=== PATIENT | female | born 1975 | race Caucasian/White ===

== ENCOUNTER → 2019-01-19 | Outpatient (CLI) | payer MEDICAID ==
--- NOTE | 2019-01-19 13:26 | Diagnostic Imaging Report ---
INDICATION: Routine screening. COMPARISON: No prior mammograms are available for comparison. TECHNIQUE: 2D and 3D bilateral screening mammography was performed with CAD. FINDINGS: Scattered fibroglandular densities are identified bilaterally. No mass or malignant appearing microcalcifications are seen. The axillae are unremarkable. IMPRESSION: No mammographic features suspicious for malignancy are identified. ACR BI-RADS Category 1: Negative. Result letter will be mailed to the patient. Note: At least 10% of breast cancer is not imaged by mammography. Dictated by: Dictated on workstation # [id number]
== END ==
LOC: RAD 10:31
PROVIDERS: ATTEND Family Medicine
DX: Z12.31 Encounter for screening mammogram for malignant neoplasm of breast (principal)
CPT/HCPCS: 77067

== ENCOUNTER → 2019-10-19 | Outpatient (CLI) | payer MEDICAID | LOC: LAB 09:25 | PROVIDERS: ATTEND Specialist | DX: B20 Human immunodeficiency virus [HIV] disease (principal) | CPT/HCPCS: 36415; 86360 ==

== ENCOUNTER → 2019-11-08 | Outpatient (CLI) | payer MEDICAID | LOC: LAB 13:22 | PROVIDERS: ATTEND Specialist | DX: B20 Human immunodeficiency virus [HIV] disease (principal) | CPT/HCPCS: 36415; 87536 ==

== ENCOUNTER 2020-04-26 13:19 | Emergency (ER) | payer MEDICAID ==
[~2020-04-26] VITALS: Ht 165 cm; Wt 58.9 kg
[2020-04-26] MEDS ORDERED: RX-ALBUTEROL INHALER (VENTOLIN HFA) 18 GM IH ONE (13:36)
[2020-04-26] MEDS ORDERED: cefTRIAXone FOR IV USE 1,000 MG in WATER (STERILE) FOR INJECTION 10 ML IV ONE (14:00)
[2020-04-26] MEDS ORDERED: RT-ALBUTEROL INHALER HFA (VENTOLIN HFA) 18 GM IH SCH (14:00)
[2020-04-26] MEDS ORDERED: methylPREDNISolone 125 MG (Solu-MEDROL) VIAL IVP ONE (14:00)
--- NOTE | 2020-04-26 14:03 | ED Cough/URI ---
General Chief Complaint: Respiratory Problems Stated Complaint: SOB; CHEST TIGHTNESS; DRY COUGH Nursing Triage Note: PT PRESENTS TO ED WITH COMPLAINTS OF CHEST TIGHTNESS, SOA, AND COUGH X 3 DAYS Sepsis Screen: No Definite Risk Source: patient Exam Limitations: no limitations History of Present Illness Date Seen by Provider: Apr 26, 2020 Time Seen by Provider: 14:00 Initial Comments To ER with reports of three-day history of intermittent chest tightness when she lays down, shortness of breath and a nonproductive cough. She does smoke about three quarters of a pack of cigarettes per day. She was told that she had the beginnings of COPD 4 years ago she states. She denies fevers chills or headache. She does have HIV and she states that her CD4 counts are typically very low that she is compliant with her antiretroviral medications. She follows with a physician out of [place]. The oral combo drug for HIv and gabapentin are her only 2 medications. Timing/Duration: constant Severity/Quality: moderate Associated Symptoms: chest pain/soreness, cough, shortness of breath Allergies and Home Medications Allergies Coded Allergies: codeine (Verified Allergy, Unknown, 04/26/20) Uncoded Allergies: pcn (Allergy, Unknown, 04/26/20) Patient Home Medication List Home Medication List Reviewed: Yes Review of Systems Review of Systems Constitutional: see HPI; No chills, No fever EENTM: see HPI, other (does report difficulty hearing) Respiratory: no symptoms reported Cardiovascular: no symptoms reported Genitourinary: no symptoms reported Musculoskeletal: no symptoms reported Skin: no symptoms reported Psychiatric/Neurological: No Symptoms Reported Hematologic/Lymphatic: No Symptoms Reported Past Vwzdmsa-Djsrrd-Vgptrp Hx Patient Social History Alcohol Use: Denies Use Recreational Drug Use: Yes Drug of Choice: thc Smoking Status: Current Everyday Smoker Type Used: Cigarettes Recent Foreign Travel: No Contact w/Someone Who Travel: No Recent Infectious Disease Expo: No Recent Hopitalizations: No Physical Abuse: No Sexual Abuse: No Mistreated: No Fear: No Seasonal Allergies Seasonal Allergies: No Past Medical History Surgeries: Yes (l eye) Tubal Ligation Respiratory: No Cardiac: No Neurological: No Genitourinary: No Gastrointestinal: No Musculoskeletal: No Endocrine: No HEENT: No Cancer: No Psychosocial: No Integumentary: No Blood Disorders: Yes (HIV) Physical Exam Vital Signs - First Documented 04/26/20 13:25 Temp 36.0 Pulse 101 Resp 18 B/P (MAP) 148/109 (122) Pulse Ox 95 Capillary Refill : Less Than 3 Seconds Height: '" Weight: lbs. oz. kg; 21.00 BMI Method: General Appearance: WD/WN, no apparent distress, thin, other (oriented very pleasant) Eyes: Bilateral Eye Normal Inspection, Bilateral Eye PERRL, Bilateral Eye EOMI HEENT: PERRL/EOMI, normal ENT inspection, other (bilateral cerumen impaction. I irrigated the ears with a 10 cc syringe attached to a 20-gauge IV catheter tip with a mixture of warm water and peroxide and removed the cerumen impaction bilaterally with resultant improvement in her hearing. She was very appreciative of this.) Neck: non-tender, full range of motion Respiratory: no respiratory distress, no accessory muscle use, wheezing (audible wheezing inspiratory and expiratory. After 6 puffs of albuterol inhaler using a spacer about 10 minutes later the wheezing was absent and she felt symptomatic improvement.) Cardiovascular: regular rate, rhythm, no murmur Gastrointestinal: normal bowel sounds, soft Neurologic/Psychiatric: alert, normal mood/affect, oriented x 3 Skin: normal color, warm/dry Progress/Results/Core Measures Suspected Sepsis Recent Fever Within 48 Hours: Yes Infection Criteria Present: None New/Unexplained Altered Menta: No Sepsis Screen: No Definite Risk SIRS Temperature: Pulse: 101 Respiratory Rate: 18 Laboratory Tests 04/26/20 13:42: White Blood Count 6.2 Blood Pressure 148 /109 Mean: 122 Laboratory Tests 04/26/20 13:42: Platelet Count 204 Results/Orders Lab Results Laboratory Tests Test 04/26/20 13:38 04/26/20 13:42 Range/Units Coronavirus 2019 (KAREN) Negative Negative White Blood Count 6.2 4.3-11.0 10^3/uL Red Blood Count 4.77 3.80-5.11 10^6/uL Hemoglobin 14.2 11.5-16.0 g/dL Hematocrit 43 35-52 % Mean Corpuscular Volume 90 80-99 fL Mean Corpuscular Hemoglobin 30 25-34 pg Mean Corpuscular Hemoglobin Concent 33 32-36 g/dL Red Cell Distribution Width 13.8 10.0-14.5 % Platelet Count 204 130-400 10^3/uL Mean Platelet Volume 10.3 9.0-12.2 fL Immature Granulocyte % (Auto) 0 % Neutrophils (%) (Auto) 57 42-75 % Lymphocytes (%) (Auto) 26 12-44 % Monocytes (%) (Auto) 11 0-12 % Eosinophils (%) (Auto) 6 0-10 % Basophils (%) (Auto) 1 0-10 % Neutrophils # (Auto) 3.5 1.8-7.8 10^3/uL Lymphocytes # (Auto) 1.6 1.0-4.0 10^3/uL Monocytes # (Auto) 0.7 0.0-1.0 10^3/uL Eosinophils # (Auto) 0.4 H 0.0-0.3 10^3/uL Basophils # (Auto) 0.1 0.0-0.1 10^3/uL Immature Granulocyte # (Auto) 0.0 0.0-0.1 10^3/uL Troponin I < 0.028 <0.028 NG/ML C-Reactive Protein High Sensitivity 3.22 H 0.00-0.50 MG/DL B-Type Natriuretic Peptide 12.9 <100.0 PG/ML My Orders Orders - MARCE KAN APRN Cbc With Automated Diff (04/26/20 13:57) Hs C Reactive Protein (04/26/20 13:57) Ed Iv/Invasive Line Start (04/26/20 13:57) Chest 1 View, Ap/Pa Only (04/26/20 13:57) BNP (04/26/20 13:57) Ekg Tracing (04/26/20 13:57) Troponin I (04/26/20 13:57) Covid 19 Inhouse Test (04/26/20 13:57) Methylprednisolone Sod Succ (Solu-Medrol (04/26/20 14:00) Ceftriaxone For Iv Use (Rocephin For I (04/26/20 14:00) Albuterol Inhaler (Ventolin Hfa) (04/26/20 14:00) Medications Given in ED Current Medications Medications Dose Ordered Sig/Zoey Route Start Time Stop Time Status Last Admin Dose Admin Ceftriaxone Sodium 1000 mg/ Sterile Water 10 ml @ 200 mls/hr ONCE ONCE IV 04/26/20 14:00 04/26/20 14:02 DC 04/26/20 14:35 200 MLS/HR Methylprednisolone Sodium Succinate 125 mg ONCE ONCE IVP 04/26/20 14:00 04/26/20 14:01 DC 04/26/20 14:34 125 MG Vital Signs/I&O 04/26/20 13:25 Temp 36.0 Pulse 101 Resp 18 B/P (MAP) 148/109 (122) Pulse Ox 95 Capillary Refill : Less Than 3 Seconds Blood Pressure Mean: 122 Departure Communication (Admissions) NAME: DELBERT CALVILLO [facility] REC#: [id number] PT STATUS: REG ER : 1975 PHYSICIAN: MARCE KAN APRN ADMIT DATE: 04/26/20/ER Draft Date of Exam:04/26/20 CHEST 1 VIEW, AP/PA ONLY HISTORY: Cough TECHNIQUE: Frontal view of the chest COMPARISON: 07/26/2008 FINDINGS: Lung volumes are mildly large. No focal consolidation is seen. There is no pleural effusion or pneumothorax. The cardiac silhouette is normal in size. IMPRESSION: 1. Mildly large lung volumes with no acute pulmonary abnormality seen. Dictated on workstation # [id number] Dict: 04/26/20 1446 Trans: 04/26/20 1452 CVB [id number] Interpreted by: WALTER BARNETT MD Electronically signed by: Impression Primary Impression: COPD exacerbation Additional Impression: Cerumen impaction Disposition: HOME, SELF-CARE Condition: Stable Departure-Patient Inst. Decision time for Depature: 15:02 Referrals: JOEL CHRISTENSEN DO (PCP/Family) Primary Care Physician Patient Instructions: Risk Factors for COPD Add. Discharge Instructions: 1. 4 puffs of the inhaler every 4 hours as needed for shortness of breath or wheezing. Steroids and antibiotics as directed. Follow-up with your doctor later this week for recheck. All discharge instructions reviewed with patient and/or family. Voiced understanding. Scripts Cefuroxime Axetil (Cefuroxime) 500 Mg Tablet 500 MG PO BID, #10 TAB Prov: MARCE KAN APRN 04/26/20 Prednisone (Prednisone) 20 Mg Tab 40 MG PO DAILY, #8 TAB 0 Refills Prov: MARCE KAN APRN 04/26/20 MARCE KAN APRN Apr 26, 2020 14:03
[2020-04-26 14:06] LABS: BASOPHILS # (AUTO) 0.1 10^3/uL (0.0-0.1); BASOPHILS % (AUTO) 1 % (0-10); EOSINOPHILS # (AUTO) 0.4 10^3/uL (0.0-0.3); EOSINOPHILS % (AUTO) 6 % (0-10); HEMATOCRIT 43 % (35-52); HEMOGLOBIN 14.2 g/dL (11.5-16.0); LYMPHOCYTES # (AUTO) 1.6 10^3/uL (1.0-4.0); LYMPHOCYTES % (AUTO) 26 % (12-44); MEAN CORPUSCULAR HEMOGLOBIN 30 pg (25-34); MEAN CORPUSCULAR HGB CONC 33 g/dL (32-36); MEAN CORPUSCULAR VOLUME 90 fL (80-99); MEAN PLATELET VOLUME 10.3 fL (9.0-12.2); MONOCYTES # (AUTO) 0.7 10^3/uL (0.0-1.0); MONOCYTES % (AUTO) 11 % (0-12); NEUTROPHILS # (AUTO) 3.5 10^3/uL (1.8-7.8); NEUTROPHILS % (AUTO) 57 % (42-75); PLATELET COUNT 204 10^3/uL (130-400); WHITE BLOOD COUNT 6.2 10^3/uL (4.3-11.0)
--- NOTE | 2020-04-26 14:54 | Diagnostic Imaging Report ---
HISTORY: Cough TECHNIQUE: Frontal view of the chest COMPARISON: 07/26/2008 FINDINGS: Lung volumes are mildly large. No focal consolidation is seen. There is no pleural effusion or pneumothorax. The cardiac silhouette is normal in size. IMPRESSION: 1. Mildly large lung volumes with no acute pulmonary abnormality seen. Dictated by: Dictated on workstation # [id number]
[2020-04-26] MEDS ORDERED: PRD20T PO (15:08)
[2020-04-26] MEDS ORDERED: CEFU500T63 PO (15:08)
[2020-04-26 15:20] VITALS: BP 135/72
== END 2020-04-26 15:20 | disposition home or self-care (01) ==
LOC: EDUNIT# 13:19 → ER 13:21
DX: J44.1 Chronic obstructive pulmonary disease with (acute) exacerbation (principal); H61.23 Impacted cerumen, bilateral; F17.210 Nicotine dependence, cigarettes, uncomplicated; Z20.828 Contact with and (suspected) exposure to other viral communicable diseases; Z88.0 Allergy status to penicillin; Z88.5 Allergy status to narcotic agent
CPT/HCPCS: 36415; 71045; 83880; 84484; 85025; 86141; 87635; 93005

== ENCOUNTER 2020-10-23 14:01 | Day surgery (SDC) | payer MEDICAID ==
[~2020-10-23] VITALS: Ht 165.1 cm; Wt 52.7 kg
[~2020-10-23 14:01] MED LIST: CEFU500T63 PO; PRD20T PO
[2020-10-23] MEDS ORDERED: ASPIRIN 81 MG CHEW (CHILDREN'S ASA) PO ONE (14:45)
[2020-10-23 15:00] LABS: BASOPHILS % (AUTO) 0 % (0-10); EOSINOPHILS % (AUTO) 0 % (0-10); HEMATOCRIT 40 % (35-52); HEMOGLOBIN 13.3 g/dL (11.5-16.0); LYMPHOCYTES # (AUTO) 0.8 X 10^3 (1.0-4.0); LYMPHOCYTES % (AUTO) 5 % (12-44); MEAN CORPUSCULAR HEMOGLOBIN 29 pg (25-34); MEAN CORPUSCULAR HGB CONC 34 g/dL (32-36); MEAN CORPUSCULAR VOLUME 86 fL (80-99); MEAN PLATELET VOLUME 11.6 fL (9.0-12.2); MONOCYTES # (AUTO) 0.5 X 10^3 (0.0-1.0); MONOCYTES % (AUTO) 3 % (0-12); NEUTROPHILS # (AUTO) 15.3 X 10^3 (1.8-7.8); NEUTROPHILS % (AUTO) 91 % (42-75); PLATELET COUNT 182 10^3/uL (130-400); WHITE BLOOD COUNT 16.8 10^3/uL (4.3-11.0)
--- NOTE | 2020-10-23 15:11 | Diagnostic Imaging Report ---
INDICATION: Productive cough and chest pain. EXAMINATION: Portable chest at 2:52 PM. FINDINGS: There is an infiltrate present in the left lower lung. The right lung is clear. There are no effusions. IMPRESSION: Left lower lung infiltrate, consistent with pneumonia. Dictated by: Dictated on workstation # [id number]
[2020-10-23 15:18] LABS: BAND NEUTROPHILS 1 %; BASOPHILS % (MANUAL) 0 %; EOSINOPHILS % (MANUAL) 0 %; LYMPHOCYTES % (MANUAL) 2 %; MONOCYTES % (MANUAL) 1 %; NEUTROPHILS % (MANUAL) 96 %; TOXIC GRANULATION/VACUOLAZATIO 1+
--- NOTE | 2020-10-23 15:32 | ED General ---
General Chief Complaint: General Problems/Pain Stated Complaint: CP,YELLOW MUCUS Nursing Triage Note: PT REPORTS BURNING SENSATION IN CHEST SINCE 829. PT REPORTS COUGHX2 DAYS WITH BLOODY AND YELLOW MUCUS. PATIENT IS CONCERNED DUE TO HER FAMILY HISTORY OF HEART FAILURE. Nursing Sepsis Screen: No Definite Risk Source of Information: Patient Exam Limitations: No Limitations History of Present Illness Date Seen by Provider: Oct 23, 2020 Time Seen by Provider: 14:07 Initial Comments This is a well-appearing 45-year-old female who presents to the ER with complaints of left-sided chest pain that started 2 days ago. States pain initially was in her left shoulder yesterday but it resolved. Earlier today when she woke up she noted she had some pain now in her left chest wall. She has been coughing up thick yellow sputum and is concerned she may have pneumonia. She is HIV positive and has a history of COPD. She denies fevers, chills, nausea, vomiting, diarrhea, abdominal pain. She does not smoke, drink alcohol, does use marijuana occasionally. Allergies and Home Medications Allergies Coded Allergies: codeine (Verified Allergy, Unknown, 04/26/20) Uncoded Allergies: pcn (Allergy, Unknown, 04/26/20) Home Medications Cefuroxime Axetil 500 Mg Tablet, 500 MG PO BID Prescribed by: MARCE KAN on 04/26/20 1508 Prednisone 20 Mg Tab, 40 MG PO DAILY Prescribed by: MARCE KAN on 04/26/20 1508 Patient Home Medication List Home Medication List Reviewed: Yes Review of Systems Review of Systems Constitutional: see HPI EENTM: no symptoms reported Respiratory: see HPI Cardiovascular: see HPI Gastrointestinal: no symptoms reported Genitourinary: no symptoms reported Musculoskeletal: see HPI Skin: no symptoms reported Psychiatric/Neurological: No Symptoms Reported Hematologic/Lymphatic: No Symptoms Reported Immunological/Allergic: no symptoms reported Past Xtlcxyy-Croofh-Kkktfo Hx Patient Social History Alcohol Use: Denies Use Drug of Choice: thc Type Used: Cigarettes Recent Infectious Disease Expo: No Recent Hopitalizations: No Seasonal Allergies Seasonal Allergies: No Past Medical History Surgeries: Yes (l eye) Tubal Ligation Respiratory: No Cardiac: No Neurological: No Genitourinary: No Gastrointestinal: No Musculoskeletal: No Endocrine: No HEENT: No Cancer: No Psychosocial: No Integumentary: No Blood Disorders: Yes (HIV) Physical Exam Vital Signs Vital Signs - First Documented 10/23/20 14:10 Temp 36.2 Pulse 90 Resp 20 B/P (MAP) 142/89 (106) Pulse Ox 98 Capillary Refill : Less Than 3 Seconds Height, Weight, BMI Height: '" Weight: lbs. oz. kg; 21.00 BMI Method: General Appearance: No Apparent Distress, WD/WN Eyes: Bilateral Eye Normal Inspection, Bilateral Eye PERRL, Bilateral Eye EOMI HEENT: PERRL/EOMI, Normal ENT Inspection Neck: Full Range of Motion, Normal Inspection Respiratory: No Accessory Muscle Use, No Respiratory Distress, Rhonci Cardiovascular: Regular Rate, Rhythm, No Edema, Normal Peripheral Pulses Gastrointestinal: Normal Bowel Sounds, Non Tender, Soft Back: Normal Inspection, No CVA Tenderness Extremity: Normal Capillary Refill, Normal Inspection, Normal Range of Motion Neurologic/Psychiatric: Alert, Oriented x3, No Motor/Sensory Deficits, Normal Mood/Affect Skin: Normal Color, Warm/Dry Progress/Results/Core Measures Suspected Sepsis Recent Fever Within 48 Hours: No Infection Criteria Present: None New/Unexplained Altered Menta: No Sepsis Screen: No Definite Risk SIRS Temperature: Pulse: 90 Respiratory Rate: 20 Laboratory Tests 10/23/20 14:14: White Blood Count 16.8H Blood Pressure 142 /89 Mean: 106 Laboratory Tests 10/23/20 14:14: Platelet Count 182 10/23/20 15:14: Creatinine 1.06, INR Comment 1.0, Total Bilirubin 0.4 Results/Orders Lab Results Laboratory Tests Test 10/23/20 14:14 10/23/20 15:14 Range/Units White Blood Count 16.8 H 4.3-11.0 10^3/uL Red Blood Count 4.59 3.80-5.11 10^6/uL Hemoglobin 13.3 11.5-16.0 g/dL Hematocrit 40 35-52 % Mean Corpuscular Volume 86 80-99 fL Mean Corpuscular Hemoglobin 29 25-34 pg Mean Corpuscular Hemoglobin Concent 34 32-36 g/dL Red Cell Distribution Width 13.7 10.0-14.5 % Platelet Count 182 130-400 10^3/uL Mean Platelet Volume 11.6 9.0-12.2 fL Immature Granulocyte % (Auto) 1 % Neutrophils (%) (Auto) 91 H 42-75 % Lymphocytes (%) (Auto) 5 L 12-44 % Monocytes (%) (Auto) 3 0-12 % Eosinophils (%) (Auto) 0 0-10 % Basophils (%) (Auto) 0 0-10 % Neutrophils # (Auto) 15.3 H 1.8-7.8 X 10^3 Lymphocytes # (Auto) 0.8 L 1.0-4.0 X 10^3 Monocytes # (Auto) 0.5 0.0-1.0 X 10^3 Eosinophils # (Auto) 0.0 0.0-0.3 10^3/uL Basophils # (Auto) 0.0 0.0-0.1 10^3/uL Immature Granulocyte # (Auto) 0.1 0.0-0.1 10^3/uL Neutrophils % (Manual) 96 % Lymphocytes % (Manual) 2 % Monocytes % (Manual) 1 % Eosinophils % (Manual) 0 % Basophils % (Manual) 0 % Band Neutrophils 1 % Toxic Granulation 1+ B-Type Natriuretic Peptide 26.6 <100.0 PG/ML Prothrombin Time 13.4 12.2-14.7 SEC INR Comment 1.0 0.8-1.4 Activated Partial Thromboplast Time 32 24-35 SEC Sodium Level 137 135-145 MMOL/L Potassium Level 3.5 L 3.6-5.0 MMOL/L Chloride Level 96 L 98-107 MMOL/L Carbon Dioxide Level 28 21-32 MMOL/L Anion Gap 13 5-14 MMOL/L Blood Urea Nitrogen 23 H 7-18 MG/DL Creatinine 1.06 0.60-1.30 MG/DL Estimat Glomerular Filtration Rate 56 BUN/Creatinine Ratio 22 Glucose Level 107 H 70-105 MG/DL Calcium Level 9.6 8.5-10.1 MG/DL Corrected Calcium 9.6 8.5-10.1 MG/DL Magnesium Level 2.4 1.6-2.4 MG/DL Total Bilirubin 0.4 0.1-1.0 MG/DL Aspartate Amino Transf (AST/SGOT) 18 5-34 U/L Alanine Aminotransferase (ALT/SGPT) 12 0-55 U/L Alkaline Phosphatase 90 40-136 U/L Myoglobin 381.7 H 10.0-92.0 NG/ML Troponin I 0.313 *H <0.028 NG/ML Total Protein 8.7 H 6.4-8.2 GM/DL Albumin 4.0 3.2-4.5 GM/DL My Orders Orders - SANNA MADRID Janay LIGHT RAIL VEHICLE OPERATOR Cbc With Automated Diff (10/23/20 14:41) Magnesium (10/23/20 14:41) Chest 1 View, Ap/Pa Only (10/23/20 14:41) Comprehensive Metabolic Panel (10/23/20 14:41) Myoglobin Serum (10/23/20 14:41) Protime With Inr (10/23/20 14:41) Partial Thromboplastin Time (10/23/20 14:41) O2 (10/23/20 14:41) Monitor-Rhythm Ecg Trace Only (10/23/20 14:41) Lipid Panel (10/24/20 06:00) Ed Iv/Invasive Line Start (10/23/20 14:41) BNP (10/23/20 14:41) Troponin I (10/23/20 14:41) Aspirin Chewable Tablet (Baby Aspirin Ch (10/23/20 14:45) Manual Differential (10/23/20 14:14) Clopidogrel Tablet (Plavix Tablet) (10/23/20 16:15) Medications Given in ED Current Medications Medications Dose Ordered Sig/Zoey Route Start Time Stop Time Status Last Admin Dose Admin Aspirin 324 mg ONCE ONCE PO 10/23/20 14:45 10/23/20 14:46 DC 10/23/20 14:47 324 MG Clopidogrel Bisulfate 300 mg ONCE ONCE PO 10/23/20 16:15 10/23/20 16:16 DC 10/23/20 16:15 300 MG Vital Signs/I&O 10/23/20 10/23/20 14:10 14:20 Temp 36.2 36.2 Pulse 90 90 Resp 20 20 B/P (MAP) 142/89 (106) Pulse Ox 98 98 Capillary Refill : Less Than 3 Seconds Blood Pressure Mean: 106 Progress Note : Progress Note Patient examined in no acute distress. Initiated cardiac work-up upon arrival. Orders placed for 4 baby aspirin. Noted to have slight ST elevation in V1 and V2, with reciprocal ST depression in leads I, II, AVF. Additionally she was noted to have elevated troponin at 0.331. States she has no chest pain since receiving ASA. Called Dr. Jordan with cardiology and updated regarding case, image of EKG provided. Recommended activating Tar Heat Exchanger Cleaner and to review recommendations for cardiac cath with patient. Notified enginehouse brakeman of STEMI. Discussed findings with patient and recommendations for cardiac cath, she is agreeable with this. She is additional ly noted to have elevated white count and left lower lobe pneumonia as well, so Dr. Molina (hospitalist) was consulted for medical management. Patient transferred from ED to laborer mine. ECG Initial ECG Impression Date: Oct 23, 2020 Initial ECG Impression Time: 14:17 Initial ECG Rate: 80 Initial ECG Rhythm: Normal Sinus Initial ECG Intervals Slight ST elevation in V1, V2. Comment Noted to have slight elevation in V1, V2. Diagnostic Imaging Diagonstic Imaging: Xray Plain Films/CT/US/NM/MRI: chest Comments NAME: DELBERT CALVILLO [facility] REC#: [id number] PT STATUS: REG ER : 1975 PHYSICIAN: SANNA MADRID LIGHT RAIL VEHICLE OPERATOR ADMIT DATE: 10/23/20/ER Draft Date of Exam:10/23/20 CHEST 1 VIEW, AP/PA ONLY INDICATION: Productive cough and chest pain. EXAMINATION: Portable chest at 2:52 PM. FINDINGS: There is an infiltrate present in the left lower lung. The right lung is clear. There are no effusions. IMPRESSION: Left lower lung infiltrate, consistent with pneumonia. Dictated on workstation # [id number] Dict: 10/23/20 1510 Trans: 10/23/20 1511 [id number] Interpreted by: TATIANA DEL ANGEL MD Electronically signed by: Reviewed: Reviewed by Me Departure Impression Primary Impression: Left lower lobe pneumonia Additional Impression: STEMI (ST elevation myocardial infarction) Disposition: ADMITTED INPATIENT Condition: Stable Admissions Decision to Admit Reason: Admit from ER (General) Decision to Admit/Date: Oct 23, 2020 Time/Decision to Admit Time: 15:57 Departure-Patient Inst. Referrals: JOEL CHRISTENSEN DO (PCP/Family) Primary Care Physician SANNA MADRID APRN Oct 23, 2020 15:32
[2020-10-23 15:33] LABS: POTASSIUM 3.5 MMOL/L (3.6-5.0)
[2020-10-23 15:34] LABS: CALCIUM 9.6 MG/DL (8.5-10.1)
[2020-10-23 15:35] LABS: TOTAL PROTEIN 8.7 GM/DL (6.4-8.2)
[2020-10-23 15:36] LABS: PROTHROMBIN TIME PATIENT 13.4 SEC (12.2-14.7)
[2020-10-23 15:37] LABS: BILIRUBIN,TOTAL 0.4 MG/DL (0.1-1.0)
[2020-10-23 15:39] LABS: CREATININE SERUM 1.06 MG/DL (0.60-1.30)
[2020-10-23 15:42] LABS: MAGNESIUM 2.4 MG/DL (1.6-2.4)
[2020-10-23] MEDS ORDERED: CLOPIDOGREL 300 MG (PLAVIX) TABLET PO ONE ×2 (16:15→17:13)
[2020-10-23] MEDS ORDERED: NITRO DRIP 25000 MCG/D5W 0 ML IV ONE (16:26)
[2020-10-23] MEDS ORDERED: LIDOCAINE 1% INJ 20 ML 20 ML VIAL ONE (16:26)
[2020-10-23] MEDS ORDERED: NS IV 1000 ML 1,000 ML ONE (16:26)
[2020-10-23] MEDS ORDERED: HEParin (CATH LAB) 2,000 ML IV ONE (16:30)
--- NOTE | 2020-10-23 16:44 | History & Physical-Hospitalist ---
History of Present Illness HPI/Chief Complaint Pt is a 45yoCF with a PMH of HIV+ status for 23 years hwo presented to the ER due to chest pain, cough, and sputum production. She reports waking up yesterday around 2am with left shoulder pain that then spread to her chest. SHe was unable to take deep breaths due to pain and was getting dyspneic on exertion. She repor ts yellow sputum production as well. She had pneumonia about a month ago so took some of the left over antibiotics that she hadn't finished yesterday. She is unsure of her viral load but believes it was high last time though she previously has had undetectable levels just prior to that. She reports compliance with her Triumeq though. Chest x-ray revealed left sided pneumonia. She is not currently on any prophylaxis due to her HIV status. She had been on Bactrim in the past but was taken off. Source: patient Date Seen 10/23/20 Time Seen by a Provider: 16:40 Attending Physician Patti Jordan MD Facp Facc Ccds PCP Mathew Thomas DO Referring Physician Date of Admission Home Medications & Allergies Home Medications Reviewed patient Home Medication Reconciliation performed by pharmacy medication reconciliations traffic technician and/or nursing. Patients Allergies have been reviewed. Allergies Allergies Coded Allergies codeine (Verified Allergy, Unknown, 04/26/20) Uncoded Allergies pcn ( Allergy, Unknown, 04/26/20) Patient Social History Marrital Status: single Smoking Status: Current Everyday Smoker (but stopped 5 days ago) Substance type: Marijuana Immunizations Up To Date Influenza Vaccine Up-to-Date: No; Not Current First/Initial COVID19 Vaccinat: None Past Medical History HIV+ Family Medical History Family Hx: Heart failure Review of Systems Constitutional: No chills; fever (subjective), malaise EENTM: no symptoms reported Respiratory: cough, dyspnea on exertion; No hemoptysis; phlegm, short of breath, wheezing Cardiovascular: chest pain; No edema, No Hx of Intervention, No palpitations Gastrointestinal: No abdominal pain, No constipation, No diarrhea, No nausea, No vomiting Genitourinary: no symptoms reported Musculoskeletal: no symptoms reported Skin: no symptoms reported Psychiatric/Neurological: No Symptoms Reported Physical Exam Physical Exam Vital Signs Vital Signs - First Documented 10/23/20 10/23/20 10/23/20 10/23/20 14:10 16:58 19:04 20:50 Temp 36.2 Pulse 90 Resp 20 B/P (MAP) 142/89 (106) Pulse Ox 98 O2 Delivery Room Air O2 Flow Rate 0.00 FiO2 21 Capillary Refill : Less Than 3 Seconds Height, Weight, BMI Height: '" Weight: lbs. oz. kg; 21.00 BMI Method: General Appearance: No Apparent Distress, Chronically ill, Thin HEENT: PERRL/EOMI, Moist Mucous Membranes Respiratory: No Accessory Muscle Use, No Respiratory Distress, Crackles (left base), Rhonci Cardiovascular: Regular Rate, Rhythm, No JVD, No Murmur Gastrointestinal: Normal Bowel Sounds, Non Tender, Soft Extremity: Normal Capillary Refill, No Calf Tenderness, No Pedal Edema Neurologic/Psychiatric: Alert, Oriented x3, Normal Mood/Affect Results Results/Procedures Labs Laboratory Tests 10/23/20 14:14 10/23/20 15:14 10/24/20 03:04 Patient resulted labs reviewed. Imaging: Reviewed Imaging Report Imaging [facility] [place] NAME: DELBERT CALVILLO [facility] REC#: [id number] PT STATUS: REG ER : 1975 PHYSICIAN: SANNA MADRID APRN ADMIT DATE: 10/23/20/ER Draft Date of Exam:10/23/20 CHEST 1 VIEW, AP/PA ONLY INDICATION: Productive cough and chest pain. EXAMINATION: Portable chest at 2:52 PM. FINDINGS: There is an infiltrate present in the left lower lung. The right lung is clear. There are no effusions. IMPRESSION: Left lower lung infiltrate, consistent with pneumonia. Dictated on workstation # [id number] Dict: 10/23/20 1510 Trans: 10/23/20 1511 [id number] Interpreted by: TATIANA DEL ANGEL MD Electronically signed by: Assessment/Plan Admission Diagnosis Sepsis Admission Status: Inpatient Order (span 2 midnights) Reason for Inpatient Admission: see below Assessment and Plan Sepsis Left sided pneumonia HIV+ status COPD with acute exacerbation and lower respiratory tract infection Continue on IV abx Broaden spectrum and add PCP coverage with bactrim SPutum culture Blood cultures Continue IVF STEMI Active chest pain and elevated troponin Cardiology consulted, plan is for cath today DVT ppx: Lovenox Diagnosis/Problems Diagnosis/Problems (1) HIV (human immunodeficiency virus infection) Qualifiers: HIV symptom status: currently asymptomatic, with history of HIV-related illness Qualified Codes: B20 - Human immunodeficiency virus [HIV] disease (2) NSTEMI (non-ST elevated myocardial infarction) Status: Acute (3) Left lower lobe pneumonia Status: Acute (4) COPD exacerbation Status: Acute SHANNON MONROY MD Oct 23, 2020 16:44
[2020-10-23] MEDS ORDERED: fentaNYL INJ 100 MCG/2 ML AMP ONE ×2 (16:46→20:03)
[2020-10-23] MEDS ORDERED: MIDAZOLAM 5 MG/5 ML (VERSED) VIAL ONE (16:46)
[2020-10-23] MEDS ORDERED: PIPERACILLIN/TAZOBACTAM (BULK) 4.5 GM in NS (IVPB) 100 ML IV SCH (17:00)
[2020-10-23] MEDS ORDERED: VANCOMYCIN INJECTION 0.1 MG in NS (IVPB) 250 ML IV SCH (17:00)
[2020-10-23] MEDS ORDERED: HEParin 1000 UNIT/ML (10ML VIAL) FOR BOLUS ONE (17:09)
[2020-10-23] MEDS ORDERED: EPTIFIBATIDE BOLUS 10 ML IV ONE (17:09)
--- NOTE | 2020-10-23 18:02 | Consultation-Cardiology ---
HPI-Cardiology Cardiology Consultation: Date of Consultation 10/23/20 Time Seen by a Provider: 16:40 Date of Admission Attending Physician Patti Jordan MD Facp Fac Ccds Admitting Physician Mathew Thomas DO Consulting Physician PATTI JORDAN MD, MA, FACP, FAC, PSYCHIATRIC, CCDS HPI: Chief Complaint: CC: Shortness of breath, chest discomfort HPI 45 yo woman who presented to ER with several days of productive cough and increasing shortness of breath, and with 2 days of waxing and waning (but unresolving chest discomfort). Was diagnosed with pneumonia. When lab results were provided, troponin was found to be elevated and we were consulted. The ECG is consistent with ant VA of undetermined age and anterior aneurysm. Given symptoms and abn troponin and abn ECG, we recommended urgent cath. She provided informed consent. Cath results are described below. Review of Systems-Cardiology Review of Systems Constitutional: malaise, tiredness; No weight loss, No weight gain Eyes: No vision change Ears/Nose/Throat: No ear discharge, No nasal drainage, No recent hearing loss Respiratory: As described under HPI Cardiovascular: As described under HPI Gastrointestinal: No diarrhea, No nausea, No vomiting Genitourinary: No dysuria, No hematuria, No urine frequency changes Musculoskeletal: No back pain, No joint pain Skin: No rash on exposed areas, No ulcerations on exposed areas Psychiatric/Neurological: No seizure, No focal weakness, No syncope Hematologic: No bleeding abnormalities [id number] Hx Patient Social History Marrital Status: single Smoking Status: Current Everyday Smoker (but stopped 5 days ago) Substance type: Marijuana Past Medical History PMH As described under Assessment. Family Medical History Family Medical History: Has fam h/o DM, but does not describe fam h/o early CAD or SCD Allergies and Home Medications Allergies Coded Allergies: codeine (Verified Allergy, Unknown, 04/26/20) Uncoded Allergies: pcn (Allergy, Unknown, 04/26/20) Home Medications Cefuroxime Axetil 500 Mg Tablet, 500 MG PO BID Prescribed by: MARCE KAN on 04/26/20 1500 Prednisone 20 Mg Tab, 40 MG PO DAILY Prescribed by: MARCE KAN on 04/26/20 1508 Patient Home Medication List Home Medication List Reviewed: Yes Physical Exam-Cardiology Physical Exam Vital Signs/I&O 10/23/20 10/23/20 10/23/20 14:10 14:20 16:58 Temp 36.2 36.2 36.2 Pulse 90 90 87 Resp 20 20 17 B/P (MAP) 142/89 (106) 126/89 Pulse Ox 98 98 100 O2 Delivery Room Air Capillary Refill : Less Than 3 Seconds Constitutional: AAO x 3, well-developed, well-nourished HEENT: PERRL, other (edentulous jaws), EOMI, hearing is well preserved; No xanthelasmas are seen Respiratory: No accessory muscle use; other (good bilat air entry, prolonged exp, exp wheezes) Cardiovascular: regular rate-rhythm, S1 and S2, systolic murmur (soft GIACOMO at card base) Gastrointestinal: No tender; soft; No guarding, No rebound; audible bowel sounds Extremities: No clubbing, No cyanosis, No significant edema Neurologic/Psychiatric: oriented x 3, other (moves all limbs equally) Skin: No rash on exposed areas, No ulcerations on exposed areas Data Review Labs Laboratory Tests 10/23/20 14:14: White Blood Count 16.8H, Red Blood Count 4.59, Hemoglobin 13.3, Hematocrit 40, Mean Corpuscular Volume 86, Mean Corpuscular Hemoglobin 29, Mean Corpuscular Hem oglobin Concent 34, Red Cell Distribution Width 13.7, Platelet Count 182, Mean Platelet Volume 11.6, Immature Granulocyte % (Auto) 1, Neutrophils (%) (Auto) 91H, Lymphocytes (%) (Auto) 5L, Monocytes (%) (Auto) 3, Eosinophils (%) (Auto) 0, Basophils (%) (Auto) 0, Neutrophils # (Auto) 15.3H, Lymphocytes # (Auto) 0.8L , Monocytes # (Auto) 0.5, Eosinophils # (Auto) 0.0, Basophils # (Auto) 0.0, Immature Granulocyte # (Auto) 0.1, Neutrophils % (Manual) 96, Lymphocytes % (Manual) 2, Monocytes % (Manual) 1, Eosinophils % (Manual) 0, Basophils % (Manual) 0, Band Neutrophils 1, Toxic Granulation 1+, B-Type Natriuretic Peptide 26.6 10/23/20 15:14: Prothrombin Time 13.4, INR Comment 1.0, Activated Partial Thromboplast Time 32, Sodium Level 137, Potassium Level 3.5L, Chloride Level 96L, Carbon Dioxide Level 28, Anion Gap 13, Blood Urea Nitrogen 23H, Creatinine 1.06, Estimat Glomerular Filtration Rate 56, BUN/Creatinine Ratio 22, Glucose Level 107H, Calcium Level 9.6, Corrected Calcium 9.6, Magnesium Level 2.4, Total Bilirubin 0.4, Aspartate Amino Transf (AST/SGOT) 18, Alanine Aminotransferase (ALT/SGPT) 12, Alkaline Phosphatase 90, Myoglobin 381.7H, Troponin I 0.313*H, Total Protein 8.7H, Albumin 4.0 Laboratory Tests 10/23/20 14:14 10/23/20 15:14 A/P-Cardiology Assessment/Admission Diagnosis CAD - Recent vs acute VA (diagnosed on 10/23/20) - Card cath on 10/23/20: 99-100% prox LAD successfully stented with Alp Xience 2.5x28 stent; mod diffuse distal disease of LAD; mild diffuse disease of LCX; multiple 40% stenoses in a dominant RCA; LVEF 30%; LVEDP 17 mmHg; anteroapical dyskinesis Ischemic cm - Card cath on 10/23/20: anteroapical dyskinesis and LVEF 30% L lower lobe pneumonia, diagnosed on 10/23/20 Chronic tobacco use COPD HIV Discussion and Recomendations * DAPT * Statin * BB and JOAQUÍN-inhib if bp tolerates * Monitor labs * Echo * Advised to quit smoking immediately and completely PATTI JORDAN MD FACP [facility] CCDS Oct 23, 2020 18:02
[2020-10-23] MEDS ORDERED: PATIENT MAY USE OWN MEDS, ALL PO SCH (18:15)
[2020-10-23] MEDS ORDERED: ACETAMINOPHEN 325 MG TABLET PO PRN (18:15)
[2020-10-23] MEDS: NS IV 1000 ML 1,000 ML IV SCH (18:38)
--- NOTE | 2020-10-23 18:45 | Cardiac Procedure Note-CS/ASA ---
Pre-Procedure Note Pre-Op Procedure Note H&P Reviewed The H&P was reviewed, patient examined and no changes noted. Date H&P Reviewed: Oct 23, 2020 Time H&P Reviewed: 16:45 Conscious Sedation Pre-Proced Time 16:45 ASA Score 4 For ASA 3 and 4: Consider anesthesia and medical clearance. Also, for patients with a history of failed moderate sedation consider anesthesia. Airway Lungs Heart ASA score ASA 1: a normal healthy patient ASA 2: a patient with a mild systemic disease (mid diabetes, controlled hypertension, obesity ASA 3: a patient with a severe systemic disease that limits activity (angina, COPD, prior Myocardial infarction) ASA 4: a patient with an incapacitating disease that is a constant threat to life (CHF, renal failure) ASA 5: a moribund patient not expected to survive 24 hrs. (ruptured aneurysm) ASA 6: a declared brain- patient whose organs are being harvested. For emergent operations, add the letter E after the classification Mallampati Classification Grade 2 Sedation Plan Analgesia, Amnesia, Plan communicated to team members, Discussed options with patient/fam, Discussed risks with patient/fam The patient is an appropriate candidate to undergo the planned procedure, sedation, and anesthesia. The patient immediately re-assessed prior to indication. TAMARA URBINA MD FACP FAC CCDS Oct 23, 2020 18:45
[2020-10-23] MEDS ORDERED: predniSONE 20 MG TAB PO NR (19:00)
[2020-10-23 19:04] VITALS: BP 126/89
[2020-10-23] MEDS ORDERED: RT-ALBUTEROL/IPRATROPIUM 3 ML (DUONEB) VIAL INH PRN (19:15)
[2020-10-23] MEDS ORDERED: PIPERACILLIN/TAZO 4.5 GM/NS 100 ML IV NR ×2 (19:15)
[2020-10-23] MEDS ORDERED: VANCOMYCIN 1 GM/NS 250 ML IVPB IV NR ×2 (19:30)
[2020-10-23] MEDS ORDERED: ATROPINE INJECTION 1 MG/10 ML SYR (ABBOTT) ONE (20:03)
--- NOTE | 2020-10-23 21:51 | CARDIAC CATHETERIZATION ---
DATE OF SERVICE: 10/23/2020 CARDIAC CATHETERIZATION AND CORONARY INTERVENTION REPORT The patient is a 45-year-old lady with coronary artery disease risk factors of a chronic history of tobacco use, who presented to the emergency room with two days of chest pain. She had also had shortness of breath and productive sputum. She was worked up in the emergency room for acute exacerbation of chronic obstructive pulmonary disease. Her chest discomfort was mild and had resolved with sublingual nitroglycerin and had not returned. Lab work, however, indicated that the troponin was elevated and at that point, the emergency room physician called us to see the patient. Because there were electrocardiographic abnormalities suggestive of anterior infarction with probable aneurysm formation, coronary artery disease was suspected. Because of recent symptoms and mild troponin elevation, urgent cardiac catheterization was recommended. Informed consent was obtained. DESCRIPTION OF PROCEDURE: She was brought to the cardiac catheterization laboratory. Right groin was prepared and draped in the usual sterile fashion. Lidocaine 1% was used for local anesthesia. Modified Seldinger technique was used to advance a 6-Gabonese sheath in right femoral artery. A 6-Gabonese JL4 catheter was used for left coronary angiography. A 6-Gabonese JR4 catheter was used for right coronary angiography. A 6-Gabonese pigtail catheter was used for left heart catheterization and left ventricular angiography. Subsequently, we proceeded with percutaneous intervention to the left anterior descending artery, which is described below. PERCUTANEOUS INTERVENTION TO THE LEFT ANTERIOR DESCENDING ARTERY: We used a 6-Gabonese JL4 guide catheter to engage the left coronary artery. The left anterior descending artery was subtotally occluded in its proximal portion and there was LOLSI 1 antegrade flow. We gave 4000 units of intravenous heparin and double bolus of Integrilin. She had received aspirin and 300 mg of oral Plavix in the emergency room. We used a BMW wire to cross the lesion and the tip was placed in the distal vessel. We carried out balloon angioplasty with a 2.0 x 20 mm balloon. This reduced the stenosis from subtotal to less than 70%. We then stented the vessel. It required stenting with Alpine Xience 2.5 x 28 mm stent that was deployed at 20 atmospheres. Subsequent angiography revealed 0% residual stenosis and flow throughout the vessel is normal. She tolerated the procedure well. The sheath was sutured in place and she was transferred to the floor for manual sheath removal. HEMODYNAMICS: Left ventricular end-diastolic pressure following coronary angiography was 17 mmHg. There is no significant pressure gradient on pullback across the aortic valve. Ascending aortic pressure was 88/68 with a mean of 78 mmHg. CORONARY ANGIOGRAPHY: Left main coronary artery does not exhibit significant disease. Left anterior descending artery had 99% to 100% stenosis in its proximal portion that was successfully stented. Left circumflex artery has diffuse mild to moderate disease. Right coronary artery is dominant and has multiple 30% to 40% stenosis. There was some spasm at the tip of the catheter when the angiography was being performed, but there does not appear to be any severe stenoses. VENTRICULAR ANGIOGRAPHY: Left ventricular angiography was carried out in the right anterior oblique projection. There is anteroapical dyskinesis. Left ventricular ejection fraction is 30%. CONCLUSIONS: 1. Coronary artery disease primarily consisting of 99% to 100% stenosis in the proximal left anterior descending that was successfully stented with Alpine Xience 2.5 x 28 mm stent that was deployed at 20 atmospheres. The left anterior descending artery has diffuse moderate disease distally. The left circumflex artery has mild disease that is diffuse. The right coronary artery has multiple 30% to 40% stenoses. 2. Ischemic cardiomyopathy with anteroapical dyskinesis and left ventricular ejection fraction of approximately 30%. 3. Mild elevation of left ventricular end-diastolic pressure. DISCUSSION AND RECOMMENDATIONS: Dual antiplatelet therapy has been initiated. If blood pressure allows, we will add JOAQUÍN inhibitors and beta blockers. Statin therapy will be initiated as needed and as tolerated. We have advised immediate and complete smoking cessation. Job ID: [id number] DocumentID: [id number] Dictated Date: 10/23/2020 17:53:28 Programmer [employer] Date: 10/23/2020 21:51:22 Dictated By: TAMARA URBINA MD, MA, FACP, FACC, MTDD
[2020-10-23] MEDS: TRIM/SULFAMETH 160/800 (SEPTRA DS) TAB PO SCH (22:52)
[2020-10-24] MEDS: RT-ALBUTEROL/IPRATROPIUM 3 ML (DUONEB) VIAL INH SCH ×4 (02:17→20:59)
[2020-10-24] MEDS: NS IV 1000 ML 1,000 ML IV SCH (02:32)
[2020-10-24] MEDS: PIPERACILLIN/TAZO 4.5 GM/NS 100 ML IV SCH ×6 (02:33→18:47)
[2020-10-24 03:21] LABS: HEMOGLOBIN 11.5 g/dL (11.5-16.0); MEAN PLATELET VOLUME 11.2 fL (9.0-12.2); WHITE BLOOD COUNT 7.9 10^3/uL (4.3-11.0)
[2020-10-24 03:40] LABS: CHLORIDE 102 MMOL/L (98-107); POTASSIUM 3.1 MMOL/L (3.6-5.0); SODIUM 137 MMOL/L (135-145)
[2020-10-24 03:41] LABS: CALCIUM 8.3 MG/DL (8.5-10.1)
[2020-10-24 03:42] LABS: GLUCOSE 108 MG/DL (70-105); TRIGLYCERIDES 773 MG/DL (<150); VLDL CHOLESTEROL 155 MG/DL (5-40)
[2020-10-24 03:43] LABS: CARBON DIOXIDE 18 MMOL/L (21-32)
[2020-10-24 03:46] LABS: CREATININE SERUM 0.75 MG/DL (0.60-1.30); GFR ESTIMATED > 60
[2020-10-24 03:47] LABS: BUN/CREATININE RATIO 23; CHOLESTEROL 209 MG/DL (< 200)
[2020-10-24 03:48] LABS: HDL CHOLESTEROL < 15 MG/DL (40-60)
[2020-10-24] MEDS: predniSONE 20 MG TAB PO SCH (06:45)
[2020-10-24] MEDS ORDERED: FLU QUADRIvalent (3YOA+) 60 mcg/0.5 ml 2020-21 (AFLURIA) IM ONE (07:00)
--- NOTE | 2020-10-24 08:19 | Progress Note - Hospitalist ---
Subjective HPI/CC On Admission Date Seen by Provider: Oct 24, 2020 Time Seen by Provider: 08:13 Pt is a 45yoCF with a PMH of HIV+ status for 23 years hwo presented to the ER due to chest pain, cough, and sputum production. She reports waking up yesterday around 2am with left shoulder pain that then spread to her chest. SHe was unable to take deep breaths due to pain and was getting dyspneic on exertion. She reports yellow sputum production as well. She had pneumonia about a month ago so took some of the left over antibiotics that she hadn't finished yesterday. She is unsure of her viral load but believes it was high last time though she previously has had undetectable levels just prior to that. She reports compliance with her Triumeq though. Chest x-ray revealed left sided pneumonia. She is not currently on any prophylaxis due to her HIV status. She had been on Bactrim in the past but was taken off. Subjective/Events-last exam Pt reports feeling much better today. Less coughing and breathing easier. No further chest pain. Objective Exam Vital Signs Vital Signs Date Time Temp Pulse Resp B/P (MAP) Pulse Ox O2 Delivery O2 Flow Rate FiO2 10/24/20 07:46 36.1 10/24/20 06:00 71 120/80 (93) 93 Room Air 10/23/20 21:15 18 10/23/20 21:00 0.00 10/23/20 19:04 21 Capillary Refill : Less Than 3 Seconds General Appearance: No Apparent Distress, WD/WN Respiratory: No Respiratory Distress; No Crackles; Rhonci (though less pronounced than yesterday) Cardiovascular: Regular Rate, Rhythm, No Murmur Extremity: No Calf Tenderness, No Pedal Edema Neurologic/Psychiatric: Alert, Oriented x3 Results/Procedures Lab Laboratory Tests 10/23/20 14:14 10/23/20 15:14 10/24/20 03:04 Patient resulted labs reviewed. Imaging: Reviewed Imaging Report Assessment/Plan Assessment and Plan Assess & Plan/Chief Complaint Sepsis Left sided pneumonia HIV+ status COPD with acute exacerbation and lower respiratory tract infection Continue on IV abx Broaden spectrum, PCP coverage with bactrim Sputum culture Blood cultures- not actually collected in the ER so will defer for now as she is improving and likely was not bacteremic- if fevers will check Continue IVF Continue prednisone Pulm consulted, appreciate recs MAT protocol CD4 count pending STEMI Cardiology consulted Cath yesterday with stent deployment Continue on DAPT Continue coreg, vasotec, lipitor Echo pending DVT ppx: Lovenox Diagnosis/Problems Diagnosis/Problems (1) HIV (human immunodeficiency virus infection) Qualifiers: HIV symptom status: currently asymptomatic, with history of HIV-related illness Qualified Codes: B20 - Human immunodeficiency virus [HIV] disease (2) NSTEMI (non-ST elevated myocardial infarction) Status: Acute (3) Left lower lobe pneumonia Status: Acute (4) COPD exacerbation Status: Acute SHANNON MONROY MD Oct 24, 2020 08:19
[2020-10-24] MEDS: TRIM/SULFAMETH 160/800 (SEPTRA DS) TAB PO SCH ×2 (10:04→18:25)
[2020-10-24] MEDS: VANCOMYCIN 750 MG/NS 250 ML IVPB IV SCH ×4 (10:04→20:35)
[2020-10-24] MEDS: ENALAPRIL 2.5 MG (VASOTEC) TAB PO SCH (10:05)
[2020-10-24] MEDS: CLOPIDOGREL 75 MG (PLAVIX) TABLET PO SCH (10:05)
[2020-10-24] MEDS: ASPIRIN 81 MG CHEW (CHILDREN'S ASA) PO SCH (10:05)
[2020-10-24] MEDS ORDERED: KCL 20 MEQ TAB (K-DUR) PO NR ×2 (10:33→13:00)
--- NOTE | 2020-10-24 10:33 | Progress Note - Cardiology ---
Cardiology SOAP Progress Note Subjective: Lying in bed States she feels good this morning No c/o CP, SOB, palpitations, syncope or near syncope No c/o right groin pain Objective: I&O/Vital Signs 10/25/20 10/26/20 10/26/20 10/26/20 23:14 00:24 02:24 04:38 Temp 36.4 36.3 Pulse 85 101 95 Resp 18 18 B/P (MAP) 107/62 (77) 115/72 (86) Pulse Ox 97 100 98 O2 Delivery Room Air Room Air Room Air 10/26/20 10/26/20 07:00 08:00 Temp 36.5 Pulse 77 94 Resp 16 B/P (MAP) 117/80 (92) Pulse Ox 97 O2 Delivery Room Air 10/26/20 00:00 Intake Total 1675 ml Balance 1675 ml Side: right Groin site without hematoma: Yes Condition: DP/PT pulses palpable, extremity w/d/p Bruising: mild bruising Constitutional: AAO x 3, well-developed, well-nourished Respiratory: No accessory muscle use; other (good bilat air entry, prolonged exp, exp wheezes) Cardiovascular: regular rate-rhythm, S1 and S2, systolic murmur (soft GIACOMO at card base) Gastrointestional: No tender; soft; No guarding, No rebound; audible bowel sounds Extremities: No clubbing, No cyanosis, No significant edema Neurologic/Psychiatric: oriented x 3, other (moves all limbs equally) Skin: No rash on exposed areas, No ulcerations on exposed areas Results/Procedures: Labs Procedures S/p cardiac cath with intervention on 10-23-20. Please see cardiac cath report for details A/P: Assessment: CAD - Recent vs acute [place] (diagnosed on 10/23/20) - Card cath on 10/23/20: 99-100% prox LAD successfully stented with Alp Xience 2.5x28 stent; mod diffuse distal disease of LAD; mild diffuse disease of LCX; multiple 40% stenoses in a dominant RCA; LVEF 30%; LVEDP 17 mmHg; anteroapical dyskinesis Ischemic cm - Card cath on 10/23/20: anteroapical dyskinesis and LVEF 30% L lower lobe pneumonia, diagnosed on 10/23/20 Chronic tobacco use COPD HIV Plan: * DAPT * Statin * BB and JOAQUÍN * Monitor labs * Echocardiogram today * Advised to quit smoking immediately and completely * Increase activity * Replace electrolytes ANTIONE HAN Oct 24, 2020 10:33
--- NOTE | 2020-10-24 17:01 | Progress Note - Cardiology ---
Cardiology SOAP Progress Note Subjective: No cp or palp or syncope No shortness of breath at rest No swelling No n/v/d Objective: I&O/Vital Signs 10/24/20 10/24/20 10/24/20 10/24/20 05:00 06:00 06:46 07:00 Pulse 67 71 88 97 B/P (MAP) 112/78 (95) 120/80 (93) 100/81 (87) Pulse Ox 94 93 92 O2 Delivery Room Air Room Air Room Air 10/24/20 10/24/20 10/24/20 10/24/20 07:46 08:00 08:00 08:34 Temp 36.1 Pulse 71 B/P (MAP) 111/79 (90) Pulse Ox 92 98 95 O2 Delivery Room Air Room Air Room Air 10/24/20 10/24/20 10/24/20 10/24/20 09:00 10:00 11:00 12:00 Pulse 79 96 82 B/P (MAP) 108/73 (85) 108/76 (87) 109/73 (85) Pulse Ox 91 96 95 98 O2 Delivery Room Air Room Air Room Air Room Air 10/24/20 10/24/20 10/24/20 10/24/20 12:00 12:47 13:00 14:00 Pulse 85 91 82 79 B/P (MAP) 113/85 (94) 112/77 (89) 105/72 (83) Pulse Ox 97 97 95 O2 Delivery Room Air Room Air Room Air 10/24/20 10/24/20 10/24/20 10/24/20 14:33 15:00 15:44 15:51 Temp 36.3 Pulse 99 B/P (MAP) 97/65 (76) Pulse Ox 94 96 98 O2 Delivery Room Air Room Air Room Air Side: right Groin site without hematoma: Yes Condition: DP/PT pulses palpable, extremity w/d/p Bruising: mild bruising Constitutional: AAO x 3, well-developed, well-nourished Respiratory: No accessory muscle use; other (good bilat air entry, prolonged exp, exp wheezes) Cardiovascular: regular rate-rhythm, S1 and S2, systolic murmur (soft GIACOMO at card base) Gastrointestional: No tender; soft; No guarding, No rebound; audible bowel sounds Extremities: No clubbing, No cyanosis, No significant edema Neurologic/Psychiatric: oriented x 3, other (moves all limbs equally) Skin: No rash on exposed areas, No ulcerations on exposed areas Results/Procedures: Labs Laboratory Tests 10/24/20 03:04: White Blood Count 7.9, Red Blood Count 3.98, Hemoglobin 11.5, Hematocrit 34L, Mean Corpuscular Volume 86, Mean Corpuscular Hemoglobin 29, Mean Corpuscular Hemoglobin Concent 34, Red Cell Distribution Width 13.5, Platelet Count 156, Mean Platelet Volume 11.2, Sodium Level 137, Potassium Level 3.1L, Chloride Level 102, Carbon Dioxide Level 18L, Anion Gap 17H, Blood Urea Nitrogen 17, Creatinine 0.75, Estimat Glomerular Filtration Rate > 60, BUN/Creatinine Ratio 23, Glucose Level 108H, Calcium Level 8.3L, Triglycerides Level 773H, Cholesterol Level 209H, LDL Cholesterol Direct 72, VLDL Cholesterol 155H, HDL Ch olesterol < 15L A/P: Assessment: CAD - Recent vs acute [place] (diagnosed on 10/23/20) - Card cath on 10/23/20: 99-100% prox LAD successfully stented with Alp Xience 2.5x28 stent; mod diffuse distal disease of LAD; mild diffuse disease of LCX; multiple 40% stenoses in a dominant RCA; LVEF 30%; LVEDP 17 mmHg; anteroapical dyskinesis Ischemic cm - Card cath on 10/23/20: anteroapical dyskinesis and LVEF 30% L lower lobe pneumonia, diagnosed on 10/23/20 Chronic tobacco use COPD HIV Plan: * Unable to increase BB and JOAQUÍN due to relatively low bp * Monitor labs * Echocardiogram today * Advised to quit smoking immediately and completely * Increase activity * Replace electrolytes * I discussed the cath findings and interventions undertaken with her and answered her questions TAMARA URBINA MD FACP FAC CCDS Oct 24, 2020 17:01
[2020-10-24] MEDS ORDERED: ONDANSETRON 4 MG/2 ML (SDV) Z0FRAN IVP PRN (21:00)
[2020-10-25] MEDS: RT-ALBUTEROL/IPRATROPIUM 3 ML (DUONEB) VIAL INH SCH ×4 (02:31→18:47)
[2020-10-25] MEDS: PIPERACILLIN/TAZO 4.5 GM/NS 100 ML IV SCH ×6 (03:46→18:19)
[2020-10-25] MEDS ORDERED: PANTOPRAZOLE 40 MG (PROTONIX) TAB PO ONE (04:37)
[2020-10-25] MEDS ORDERED: NITROGLYCERIN 2% OINT 1 GM UNIT DOSE PACKET ONE (04:38)
[2020-10-25] MEDS: ACETAMINOPHEN 325 MG TABLET PO PRN (04:47)
[2020-10-25] MEDS: PANTOPRAZOLE 40 MG (PROTONIX) TAB PO SCH (04:47)
[2020-10-25] MEDS: NITROGLYCERIN 2% OINT 1 GM UNIT DOSE PACKET TOP SCH ×3 (04:50→20:20)
[2020-10-25] MEDS: predniSONE 20 MG TAB PO SCH (06:29)
[2020-10-25] MEDS ORDERED: TROUGH ORDER-PHARMACY XX NR (06:30)
[2020-10-25 07:08] LABS: CHLORIDE 109 MMOL/L (98-107); POTASSIUM 3.6 MMOL/L (3.6-5.0); SODIUM 138 MMOL/L (135-145)
[2020-10-25 07:09] LABS: CALCIUM 7.7 MG/DL (8.5-10.1)
[2020-10-25 07:10] LABS: GLUCOSE 99 MG/DL (70-105)
[2020-10-25 07:11] LABS: CARBON DIOXIDE 20 MMOL/L (21-32)
[2020-10-25 07:14] LABS: CREATININE SERUM 0.73 MG/DL (0.60-1.30); GFR ESTIMATED > 60
[2020-10-25 07:15] LABS: BUN/CREATININE RATIO 16
[2020-10-25 07:16] LABS: MAGNESIUM 2.2 MG/DL (1.6-2.4)
[2020-10-25] MEDS: VANCOMYCIN 750 MG/NS 250 ML IVPB IV SCH ×2 (08:23)
[2020-10-25] MEDS: ASPIRIN 81 MG CHEW (CHILDREN'S ASA) PO SCH (08:23)
[2020-10-25] MEDS: CLOPIDOGREL 75 MG (PLAVIX) TABLET PO SCH (08:24)
[2020-10-25] MEDS: ENALAPRIL 2.5 MG (VASOTEC) TAB PO SCH (08:24)
[2020-10-25] MEDS: TRIM/SULFAMETH 160/800 (SEPTRA DS) TAB PO SCH ×2 (08:24→18:18)
[2020-10-25] MEDS: NS IV 1000 ML 1,000 ML IV SCH (11:20)
--- NOTE | 2020-10-25 13:30 | Progress Note - Hospitalist ---
Subjective HPI/CC On Admission Date Seen by Provider: Oct 25, 2020 Time Seen by Provider: 13:28 Pt is a 45yoCF with a PMH of HIV+ status for 23 years hwo presented to the ER due to chest pain, cough, and sputum production. She reports waking up yesterday around 2am with left shoulder pain that then spread to her chest. SHe was unable to take deep breaths due to pain and was getting dyspneic on exertion. She reports yellow sputum production as well. She had pneumonia about a month ago so took some of the left over antibiotics that she hadn't finished yesterday. She is unsure of her viral load but believes it was high last time though she previously has had undetectable levels just prior to that. She reports compliance with her Triumeq though. Chest x-ray revealed left sided pneumonia. She is not currently on any prophylaxis due to her HIV status. She had been on Bactrim in the past but was taken off. Subjective/Events-last exam Pt reports doing ok but had some left sided chest pain. Improved with N itropaste. No other complaints currently. Objective Exam Vital Signs Vital Signs Date Time Temp Pulse Resp B/P (MAP) Pulse Ox O2 Delivery O2 Flow Rate FiO2 10/25/20 12:36 100 10/25/20 11:51 36.2 17 120/79 (93) 98 Room Air 10/23/20 21:00 0.00 10/23/20 19:04 21 Capillary Refill : Less Than 3 Seconds General Appearance: No Apparent Distress, Thin Respiratory: Lungs Clear, No Respiratory Distress Cardiovascular: Regular Rate, Rhythm, No Murmur Neurologic/Psychiatric: Alert, Oriented x3 Results/Procedures Lab Laboratory Tests 10/25/20 06:45 Patient resulted labs reviewed. Imaging: Reviewed Imaging Report Assessment/Plan Assessment and Plan Assess & Plan/Chief Complaint Sepsis Left sided pneumonia HIV+ status COPD with acute exacerbation and lower respiratory tract infection Continue on IV abx Broaden spectrum and add PCP coverage with bactrim Sputum culture not collected Continue IVF CD4 count pending STEMI s/p cath and stent deployment continue DAPT, vasotec, lipitor and coreg DVT ppx: Lovenox Diagnosis/Problems Diagnosis/Problems (1) HIV (human immunodeficiency virus infection) Qualifiers: HIV symptom status: currently asymptomatic, with history of HIV-related illness Qualified Codes: B20 - Human immunodeficiency virus [HIV] disease (2) NSTEMI (non-ST elevated myocardial infarction) Status: Acute (3) Left lower lobe pneumonia Status: Acute (4) COPD exacerbation Status: Acute SHANNON MONROY MD Oct 25, 2020 13:30
--- NOTE | 2020-10-25 15:51 | Progress Note - Cardiology ---
Cardiology SOAP Progress Note Subjective: Chest discomfort this am: L lateral, some radiation to L shoulder, mild, sharp, different from what she presented with, not associated with other symptoms, persistent for about an hour, resolved gradually after nitropaste applied No shortness of breath at rest No n/v/d No palp or syncope Objective: I&O/Vital Signs 10/25/20 10/25/20 10/25/20 10/25/20 04:25 05:31 06:40 08:22 Temp 35.8 Pulse 101 98 99 Resp 18 B/P (MAP) 126/85 (99) 111/74 (86) 120/77 (91) Pulse Ox 98 99 O2 Delivery Room Air Room Air 10/25/20 10/25/20 10/25/20 10/25/20 09:00 09:56 11:51 12:36 Temp 36.2 Pulse 88 100 Resp 17 B/P (MAP) 120/79 (93) Pulse Ox 97 98 O2 Delivery Room Air Room Air Room Air 10/25/20 14:29 Pulse Ox 98 O2 Delivery Room Air 10/25/20 00:00 Intake Total 460 ml Balance 460 ml Side: right Groin site without hematoma: Yes Condition: DP/PT pulses palpable, extremity w/d/p Bruising: mild bruising Constitutional: AAO x 3, well-developed, well-nourished Respiratory: No accessory muscle use; other (good bilat air entry, prolonged exp, exp wheezes) Cardiovascular: regular rate-rhythm, S1 and S2, systolic murmur (soft GIACOMO at card base) Gastrointestional: No tender; soft; No guarding, No rebound; audible bowel sounds Extremities: No clubbing, No cyanosis, No significant edema Neurologic/Psychiatric: oriented x 3, other (moves all limbs equally) Skin: No rash on exposed areas, No ulcerations on exposed areas Results/Procedures: Labs Laboratory Tests 10/25/20 06:45: Sodium Level 138, Potassium Level 3.6, Chloride Level 109H, Carbon Dioxide Level 20L, Anion Gap 9, Blood Urea Nitrogen 12, Creatinine 0.73, Estimat Glomerular Filtration Rate > 60, BUN/Creatinine Ratio 16, Glucose Level 99, Calcium Level 7.7L, Magnesium Level 2.2, Vancomycin Level Trough 10.5 A/P: Assessment: CAD - Recent vs acute [place] (diagnosed on 10/23/20) - Card cath on 10/23/20: 99-100% prox LAD successfully stented with Alp Xience 2.5x28 stent; mod diffuse distal disease of LAD; mild diffuse disease of LCX; multiple 40% stenoses in a dominant RCA; LVEF 30%; LVEDP 17 mmHg; anteroapical dyskinesis Ischemic cm - Card cath on 10/23/20: anteroapical dyskinesis and LVEF 30% - Echo on 10/24/20: anteroapical and anteroseptal akinesis, LVEF 35-40% L lower lobe pneumonia, diagnosed on 10/23/20 Chronic tobacco use COPD HIV Plan: * Chest discomfort different from what she presented with. May be related to GERD from new meds that include ASA and clopidogrel. Add PPI * Unable to increase BB and JOAQUÍN due to relatively low bp * Monitor labs * Keep in the hospital today * Discussed with TAMARA Werner MD FACP FAC CCDS Oct 25, 2020 15:51
[2020-10-25] MEDS ORDERED: VANCOMYCIN 1 GM/NS 250 ML IVPB IV SCH ×2 (18:00)
[2020-10-26] MEDS: RT-ALBUTEROL/IPRATROPIUM 3 ML (DUONEB) VIAL INH SCH ×2 (02:24→10:04)
[2020-10-26] MEDS: PIPERACILLIN/TAZO 4.5 GM/NS 100 ML IV SCH ×2 (02:26)
[2020-10-26] MEDS: predniSONE 20 MG TAB PO SCH (06:19)
[2020-10-26] MEDS: PANTOPRAZOLE 40 MG (PROTONIX) TAB PO SCH (06:19)
[2020-10-26] MEDS: ACETAMINOPHEN 325 MG TABLET PO PRN (06:19)
--- NOTE | 2020-10-26 08:50 | Progress Note - Cardiology ---
Cardiology SOAP Progress Note Subjective: Sitting up in bed No further c/o CP No c/o SOB, palpitations, syncope or near syncope Objective: I&O/Vital Signs 10/25/20 10/26/20 10/26/20 10/26/20 23:14 00:24 02:24 04:38 Temp 36.4 36.3 Pulse 85 101 95 Resp 18 18 B/P (MAP) 107/62 (77) 115/72 (86) Pulse Ox 97 100 98 O2 Delivery Room Air Room Air Room Air 10/26/20 10/26/20 07:00 08:00 Temp 36.5 Pulse 77 94 Resp 16 B/P (MAP) 117/80 (92) Pulse Ox 97 O2 Delivery Room Air 10/26/20 00:00 Intake Total 1675 ml Balance 1675 ml Side: right Groin site without hematoma: Yes Condition: DP/PT pulses palpable, extremity w/d/p Bruising: mild bruising Constitutional: AAO x 3, well-developed, well-nourished Respiratory: No accessory muscle use; other (good bilat air entry, prolonged exp, exp wheezes) Cardiovascular: regular rate-rhythm, S1 and S2, systolic murmur (soft GIACOMO at card base) Gastrointestional: No tender; soft; No guarding, No rebound; audible bowel sounds Extremities: no lower extremity edema bilateral Neurologic/Psychiatric: oriented x 3, other (moves all limbs equally) Skin: No rash on exposed areas, No ulcerations on exposed areas A/P: Assessment: CAD - Recent vs acute [place] (diagnosed on 10/23/20) - Card cath on 10/23/20: 99-100% prox LAD successfully stented with Alp Xience 2.5x28 stent; mod diffuse distal disease of LAD; mild diffuse disease of LCX; multiple 40% stenoses in a dominant RCA; LVEF 30%; LVEDP 17 mmHg; anteroapical dyskinesis Ischemic cm - Card cath on 10/23/20: anteroapical dyskinesis and LVEF 30% - Echo on 10/24/20: anteroapical and anteroseptal akinesis, LVEF 35-40% L lower lobe pneumonia, diagnosed on 10/23/20 Chronic tobacco use COPD HIV Plan: * No further c/o CP * Wants to go home * Unable to increase BB and JOAQUÍN due to relatively low bp * OK to discharge home from cardiac stand point * F/U in one week * Discussed importance of compliance with medications and f/u ANTIONE HAN [facility] Oct 26, 2020 08:50
[2020-10-26] MEDS ORDERED: ATOR40TA PO (08:53)
[2020-10-26] MEDS ORDERED: PANT40TA52 PO (08:53)
[2020-10-26] MEDS ORDERED: ENLP2.5T PO (08:53)
[2020-10-26] MEDS ORDERED: ASPI81TA64 PO (08:53)
[2020-10-26] MEDS ORDERED: CLOP75TA28 PO (08:53)
[2020-10-26] MEDS ORDERED: CARV3.122 PO (08:53)
[2020-10-26] MEDS: TRIM/SULFAMETH 160/800 (SEPTRA DS) TAB PO SCH (09:20)
[2020-10-26] MEDS: ASPIRIN 81 MG CHEW (CHILDREN'S ASA) PO SCH (09:20)
[2020-10-26] MEDS: ENALAPRIL 2.5 MG (VASOTEC) TAB PO SCH (09:21)
[2020-10-26] MEDS: CLOPIDOGREL 75 MG (PLAVIX) TABLET PO SCH (09:21)
[2020-10-26] MEDS: NITROGLYCERIN 2% OINT 1 GM UNIT DOSE PACKET TOP SCH (09:24)
--- NOTE | 2020-10-26 10:45 | Discharge Summary ---
Diagnosis/Chief Complaint Date of Admission Date of Discharge Admission Diagnosis Sepsis Primary Care Mathew Thomas DO Discharge Diagnosis (1) HIV (human immunodeficiency virus infection) (2) NSTEMI (non-ST elevated myocardial infarction) Status: Acute (3) Left lower lobe pneumonia Status: Acute (4) COPD exacerbation Status: Acute Discharge Summary Procedures/Consulations Dr Jordan- Cardiology Discharge Physical Exam Allergies: Coded Allergies: codeine (Verified Allergy, Unknown, 04/26/20) Uncoded Allergies: pcn (Allergy, Unknown, 04/26/20) Vitals & I&Os Vital Signs Date Time Temp Pulse Resp B/P (MAP) Pulse Ox O2 Delivery O2 Flow Rate FiO2 10/26/20 11:28 10/26/20 10:04 95 Room Air 10/26/20 09:00 0.00 10/26/20 08:00 36.5 94 16 10/23/20 19:04 21 General Appearance: No Apparent Distress, Chronically ill, Thin Respiratory: Lungs Clear, No Respiratory Distress Cardiovascular: Regular Rate, Rhythm, No Murmur Gastrointestinal: Normal Bowel Sounds, Soft Neurologic/Psychiatric: Alert, Oriented x3 Hospital Course Pt was admitted due to a STEMI but was also found to have a left sided pneumonia. She was taken emergently to the analytical lab technician where stent was deployed. She was also found to be septic from a left sided pneumonia. She was treated with IV abx and she was unsure of her CD4 count so she was start on Bactrim. CD4 count here was found to be 38 so she was continued on bactrim for ppx upon discharge along with cefdinir for her pneumonia. She was advised to follow up with her infectious disease doctor Dr Duke for further management of her HIV and with Dr Jordan to follow up this hospital stay. Labs (last 24 hrs) Patient resulted labs reviewed. Imaging: Reviewed Imaging Report Discussion & Recommendations Discharge Planning: >30 minutes discharge planning Discharge Home Medications: Active Scripts Active Cefdinir 300 Mg Capsule 300 Mg PO BID Bactrim Ds Tablet (Sulfamethoxazole/Trimethoprim) 1 Each Tablet 1 Ea PO DAILY Pantoprazole Sodium 40 Mg Tablet. 40 Mg PO DAILY@0700 Children's Aspirin (Aspirin) 81 Mg Tab.chew 81 Mg PO DAILY Enalapril Maleate 2.5 Mg Tablet 2.5 Mg PO DAILY Carvedilol 3.125 Mg Tablet 3.125 Mg PO BID Lipitor (Atorvastatin Calcium) 40 Mg Tablet 40 Mg PO HS Clopidogrel (Clopidogrel Bisulfate) 75 Mg Tablet 75 Mg PO DAILY Prednisone 20 Mg Tab 40 Mg PO DAILY Instructions to patient/family Please see electronic discharge instructions given to patient. Problem Qualifiers (1) HIV (human immunodeficiency virus infection): HIV symptom status: currently asymptomatic, with history of HIV-related illness Qualified Codes: B20 - Human immunodeficiency virus [HIV] disease SHANNON MONROY MD Oct 26, 2020 10:45
--- NOTE | 2020-10-26 10:48 | Progress Note - Cardiology ---
Cardiology SOAP Progress Note Subjective: No cp or palp or syncope No shortness of breath at rest No n/v/d Objective: I&O/Vital Signs 10/25/20 10/26/20 10/26/20 10/26/20 23:14 00:24 02:24 04:38 Temp 36.4 36.3 Pulse 85 101 95 Resp 18 18 B/P (MAP) 107/62 (77) 115/72 (86) Pulse Ox 97 100 98 O2 Delivery Room Air Room Air Room Air 10/26/20 10/26/20 10/26/20 10/26/20 07:00 08:00 09:00 10:04 Temp 36.5 Pulse 77 94 Resp 16 B/P (MAP) 117/80 (92) Pulse Ox 97 95 95 O2 Delivery Room Air Room Air Room Air O2 Flow Rate 0.00 10/26/20 00:00 Intake Total 1675 ml Balance 1675 ml Side: right Groin site without hematoma: Yes Condition: DP/PT pulses palpable, extremity w/d/p Bruising: mild bruising Constitutional: AAO x 3, well-developed, well-nourished Respiratory: No accessory muscle use; other (good bilat air entry, prolonged exp, exp wheezes) Cardiovascular: regular rate-rhythm, S1 and S2, systolic murmur (soft GIACOMO at card base) Gastrointestional: No tender; soft; No guarding, No rebound; audible bowel sounds Extremities: no lower extremity edema bilateral Neurologic/Psychiatric: oriented x 3, other (moves all limbs equally) Skin: No rash on exposed areas, No ulcerations on exposed areas Results/Procedures: Labs Laboratory Tests 10/25/20 06:45 A/P: Assessment: CAD - Recent vs acute [place] (diagnosed on 10/23/20) - Card cath on 10/23/20: 99-100% prox LAD successfully stented with Alp Xience 2.5x28 stent; mod diffuse distal disease of LAD; mild diffuse disease of LCX; multiple 40% stenoses in a dominant RCA; LVEF 30%; LVEDP 17 mmHg; anteroapical dyskinesis Ischemic cm - Card cath on 10/23/20: anteroapical dyskinesis and LVEF 30% - Echo on 10/24/20: anteroapical and anteroseptal akinesis, LVEF 35-40% L lower lobe pneumonia, diagnosed on 10/23/20 Chronic tobacco use COPD HIV Plan: * No further c/o CP * Wants to go home * Unable to increase BB and JOAQUÍN due to relatively low bp * OK to discharge home from cardiac stand point * F/U in one week * Discussed importance of compliance with medications and f/u TAMARA URBINA MD FACP FAC CCDS Oct 26, 2020 10:48
--- NOTE | 2020-10-26 10:50 | Discharge Inst-Simple/Standard ---
Discharge Inst-Standard Patient Instructions/Follow Up Plan of Care/Instructions/FU: Please continue to take your medications as written. Please follow up with your primary care doctor to follow up this hospital stay. Activity as Tolerated: Yes Discharge Diet: Cardiac Diet Return to The Hospital For: Chest pain, shortness of breath, worsening cough, fever, if you feel you are getting worse. SHANNON MONROY MD Oct 26, 2020 10:50
[2020-10-26] MEDS ORDERED: SULF1TAB35 PO (10:51)
[2020-10-26] MEDS ORDERED: CEFD300C3 PO (10:51)
[2020-10-26] MEDS ORDERED: guaiFENesin (MUCINEX) 600 MG TAB PO ONE (11:00)
== END 2020-10-26 11:53 | disposition home or self-care (01) ==
LOC: EDUNIT# 14:01 → ER 14:04 → CATH 16:21 → ICU 18:22 → 4TH 10-24 18:10 → CATH 10-26 11:53
PROVIDERS: ATTEND Internal Medicine Cardiovascular Disease
DX: B20 Human immunodeficiency virus [HIV] disease (principal); I25.10 Atherosclerotic heart disease of native coronary artery without angina pectoris; A41.9 Sepsis, unspecified organism; J18.1 Lobar pneumonia, unspecified organism; I21.4 Non-ST elevation (NSTEMI) myocardial infarction; J44.1 Chronic obstructive pulmonary disease with (acute) exacerbation; F17.210 Nicotine dependence, cigarettes, uncomplicated; Z79.899 Other long term (current) drug therapy; Z88.0 Allergy status to penicillin; Z88.5 Allergy status to narcotic agent
CPT/HCPCS: 36415; 71045; 80053; 83735; 83874; 83880; 84484; 85007; 85027; 85610; 85730; 93005; 93041; 93306; 93458; 94640; 94760

== ENCOUNTER 2023-02-28 15:50 | Emergency (ER) | payer MEDICAID, OTHER ==
[~2023-02-28 15:50] MED LIST changes: +ASPI81TA64 PO; +ATOR40TA PO; +CARV3.122 PO; +CEFD300C3 PO; +CLOP75TA28 PO; +ENLP2.5T PO; +PANT40TA52 PO; +SULF1TAB38 PO
[2023-02-28] MEDS ORDERED: NS IV 1000 ML 1,000 ML IV SCH (16:15)
[2023-02-28 16:21] LABS: BASOPHILS % (AUTO) 1 % (0-10); EOSINOPHILS % (AUTO) 0 % (0-10); HEMATOCRIT 36 % (35-52); HEMOGLOBIN 11.8 g/dL (11.5-16.0); LYMPHOCYTES # (AUTO) 0.7 10^3/uL (1.0-4.0); LYMPHOCYTES % (AUTO) 17 % (12-44); MEAN CORPUSCULAR HEMOGLOBIN 28 pg (25-34); MEAN CORPUSCULAR HGB CONC 33 g/dL (32-36); MEAN CORPUSCULAR VOLUME 86 fL (80-99); MEAN PLATELET VOLUME 9.7 fL (9.0-12.2); MONOCYTES # (AUTO) 0.3 10^3/uL (0.0-1.0); MONOCYTES % (AUTO) 8 % (0-12); NEUTROPHILS # (AUTO) 3.1 10^3/uL (1.8-7.8); NEUTROPHILS % (AUTO) 74 % (42-75); PLATELET COUNT 243 10^3/uL (130-400); WHITE BLOOD COUNT 4.2 10^3/uL (4.3-11.0)
--- NOTE | 2023-02-28 16:23 | ED Cough/URI ---
General Chief Complaint: Cough/Cold/Flu Symptoms Stated Complaint: COUGH; [place]; SOB Nursing Triage Note: Patient presents to the ED with c/o cough, headache, shortness of breath, and sore throat. Reports symptoms began 5 days ago. HIV+. Denies any fever, nausea, vomiting, or diarrhea. No recent exposure to known illness. Took 800mg Ibuprofen 1 hour prior to arrival. Source: patient, RN notes reviewed Exam Limitations: no limitations History of Present Illness Date Seen by Provider: Feb 28, 2023 Time Seen by Provider: 16:00 Initial Comments 47-year-old female patient with history of HIV and smoking half a pack a day complaining of productive cough with yellow sputum and episode of sore throat, shortness of breath and headache for the last 5 days that gradually getting worse. Patient denies chest pain, fever and chills, myalgia, sick contact, diarrhea and constipation, vomiting and nausea, urinary symptoms. Patient stated he usually gets pneumonia once a year at the same time of year and needs hospitalization. Patient was afebrile at arrival ER and had O2 sat of 99% on room air. Allergies and Home Medications Allergies Coded Allergies: codeine (Verified Allergy, Unknown, 04/26/20) Uncoded Allergies: pcn (Allergy, Unknown, 04/26/20) Patient Home Medication List Home Medication List Reviewed: Yes Aspirin (Children's Aspirin) 81 Mg Tab.chew, 81 MG PO DAILY Prescribed by: ANTIONE HAN on 10/26/20 08 Atorvastatin Calcium (Lipitor) 40 Mg Tablet, 40 MG PO HS Prescribed by: ANTIONE HAN on 10/26/20 0853 Benzonatate (Tessalon Perles) 100 Mg Capsule, 100 MG PO TID Prescribed by: Emmy baltazar on 02/28/23 1646 Carvedilol (Carvedilol) 3.125 Mg Tablet, 3.125 MG PO BID Prescribed by: ANTIONE HAN on 10/26/20 0853 Cefdinir (Cefdinir) 300 Mg Capsule, 300 MG PO BID Prescribed by: SHANNON MONROY on 10/26/20 1051 Clopidogrel Bisulfate (Clopidogrel) 75 Mg Tablet, 75 MG PO DAILY Prescribed by: ANTIONE HAN on 10/26/20 0853 Enalapril Maleate (Enalapril Maleate) 2.5 Mg Tablet, 2.5 MG PO DAILY Prescribed by: ANTIONE HAN on 10/26/20 0853 Pantoprazole Sodium (Pantoprazole Sodium) 40 Mg Tablet.dr, 40 MG PO DAILY@0700 Prescribed by: ANTIONE HAN on 10/26/20 0853 Prednisone (Prednisone) 20 Mg Tab, 40 MG PO DAILY Prescribed by: MARCE KAN on 04/26/20 1508 Sulfamethoxazole/Trimethoprim (Bactrim Ds Tablet) 1 Each Tablet, 1 EA PO DAILY Prescribed by: SHANNON MONROY on 10/26/20 1051 Sulfamethoxazole/Trimethoprim (Bactrim Ds Tablet) 1 Each Tablet, 1 EACH PO BID Prescribed by: Emmy baltazar on 02/28/23 1646 Review of Systems Review of Systems Constitutional: see HPI EENTM: see HPI Respiratory: see HPI Cardiovascular: no symptoms reported Gastrointestinal: no symptoms reported Genitourinary: no symptoms reported Musculoskeletal: no symptoms reported Skin: no symptoms reported Psychiatric/Neurological: No Symptoms Reported Hematologic/Lymphatic: No Symptoms Reported Immunological/Allergic: no symptoms reported All Other Systems Reviewed Negative Unless Noted: Yes Past Suqeyxv-[id number]-Wttlrq Hx Patient Social History Tobacco Use?: Yes Tobacco type used: Cigarettes Smoking Status: Current Everyday Smoker Use of E-Cig and/or Vaping dev: No Substance use?: No Alcohol Use?: No Pt feels they are or have been: No Immunizations Up To Date Influenza Vaccine Up-to-Date: Yes; Up-to-Date First/Initial COVID19 Vaccinat: None Second COVID19 Vaccination Tre: None Third COVID19 Vaccination Date: None Seasonal Allergies Seasonal Allergies: No Past Medical History Surgery/Hospitalization HX: HIV+; Cardiac stent Surgeries: Yes (l eye) Tubal Ligation Respiratory: No Cardiac: No Neurological: No Genitourinary: No Gastrointestinal: No Musculoskeletal: No Endocrine: No HEENT: No Cancer: No Psychosocial: No Integumentary: No Blood Disorders: Yes (HIV) Family Medical History Heart failure Physical Exam Vital Signs - First Documented 02/28/23 16:02 Temp 36.7 Pulse 109 Resp 16 B/P (MAP) 143/91 (108) Pulse Ox 99 O2 Delivery Room Air Capillary Refill : Less Than 3 Seconds Height: '" Weight: lbs. oz. kg; 19.26 BMI Method: General Appearance: mild distress (Anxious), thin Eyes: Bilateral Eye Normal Inspection, Bilateral Eye PERRL, Bilateral Eye EOMI HEENT: PERRL/EOMI, normal ENT inspection, TMs normal, pharynx normal Neck: non-tender, full range of motion, supple Respiratory: chest non-tender, lungs clear, normal breath sounds, no respiratory distress Cardiovascular: no edema, no gallop, tachycardia Gastrointestinal: normal bowel sounds, non tender, soft Extremities: normal range of motion, non-tender Neurologic/Psychiatric: alert, oriented x 3 Skin: normal color Focused Exam Lactate Level 02/28/23 16:20: Lactic Acid Level 1.08 Lactic Acid Level Laboratory Tests Test 02/28/23 16:20 Lactic Acid Level 1.08 MMOL/L (0.50-2.00) Progress/Results/Core Measures Suspected Sepsis SIRS Temperature: Pulse: 109 Respiratory Rate: 16 Laboratory Tests 02/28/23 16:20: White Blood Count 4.2L Blood Pressure 143 /91 Mean: 108 02/28/23 16:20: Lactic Acid Level 1.08 Laboratory Tests 02/28/23 16:20: Creatinine 0.74, Platelet Count 243, Total Bilirubin 0.5 Results/Orders Lab Results Laboratory Tests Test 02/28/23 16:05 02/28/23 16:20 Range/Units SARS-CoV-2 RNA (RT-PCR) Not Detected Not Detecte White Blood Count 4.2 L 4.3-11.0 10^3/uL Red Blood Count 4.20 3.80-5.11 10^6/uL Hemoglobin 11.8 11.5-16.0 g/dL Hematocrit 36 35-52 % Mean Corpuscular Volume 86 80-99 fL Mean Corpuscular Hemoglobin 28 25-34 pg Mean Corpuscular Hemoglobin Concent 33 32-36 g/dL Red Cell Distribution Width 13.9 10.0-14.5 % Platelet Count 243 130-400 10^3/uL Mean Platelet Volume 9.7 9.0-12.2 fL Immature Granulocyte % (Auto) 1 % Neutrophils (%) (Auto) 74 42-75 % Lymphocytes (%) (Auto) 17 12-44 % Monocytes (%) (Auto) 8 0-12 % Eosinophils (%) (Auto) 0 0-10 % Basophils (%) (Auto) 1 0-10 % Neutrophils # (Auto) 3.1 1.8-7.8 10^3/uL Lymphocytes # (Auto) 0.7 L 1.0-4.0 10^3/uL Monocytes # (Auto) 0.3 0.0-1.0 10^3/uL Eosinophils # (Auto) 0.0 0.0-0.3 10^3/uL Basophils # (Auto) 0.0 0.0-0.1 10^3/uL Immature Granulocyte # (Auto) 0.0 0.0-0.1 10^3/uL Sodium Level 134 L 135-145 MMOL/L Potassium Level 3.3 L 3.6-5.0 MMOL/L Chloride Level 97 L 98-107 MMOL/L Carbon Dioxide Level 24 21-32 MMOL/L Anion Gap 13 5-14 MMOL/L Blood Urea Nitrogen 9 7-18 MG/DL Creatinine 0.74 0.60-1.30 MG/DL Estimat Glomerular Filtration Rate 99 BUN/Creatinine Ratio 12 Glucose Level 111 H 70-105 MG/DL Lactic Acid Level 1.08 0.50-2.00 MMOL/L Calcium Level 8.7 8.5-10.1 MG/DL Corrected Calcium 8.8 8.5-10.1 MG/DL Total Bilirubin 0.5 0.1-1.0 MG/DL Aspartate Amino Transf (AST/SGOT) 17 5-34 U/L Alanine Aminotransferase (ALT/SGPT) 18 0-55 U/L Alkaline Phosphatase 94 40-136 U/L Total Protein 7.7 6.4-8.2 GM/DL Albumin 3.9 3.2-4.5 GM/DL My Orders Orders - EMMY BALTAZAR MD Cbc With Automated Diff (02/28/23 16:09) Comprehensive Metabolic Panel (02/28/23 16:09) Chest 1 View Ap/Pa Only (02/28/23 16:09) Ed Iv/Invasive Line Start (02/28/23 16:09) Lactic Acid Analyzer (02/28/23 16:09) Ns Iv 1000 Ml (Ns Iv 1000 Ml) (02/28/23 16:15) Covid 19 Inhouse Test (02/28/23 16:23) Potassium Chloride (Tablet) (Potassium C (02/28/23 16:45) Vital Signs/I&O 02/28/23 16:02 Temp 36.7 Pulse 109 Resp 16 B/P (MAP) 143/91 (108) Pulse Ox 99 O2 Delivery Room Air Capillary Refill : Less Than 3 Seconds Blood Pressure Mean: 108 Progress Note : Time: 16:49 Progress Note 47-year-old female patient with history of HIV and previous episodes of pneumonia and smoking complaining of cough for 5 days. Patient had stable vitals and unremarkable physical exam. CBC, CMP, lactic acid, COVID test and chest x-ray was ordered and reviewed by me and showed potassium of 3.3, sodium of 134, chloride of 97 and white count of 4.2. Chest x-ray did not show infiltrate. Chest x-ray had questionable area in right lung for possible nipple or nodule and recommended repeat chest x-ray in 2 weeks and patient advised to follow-up with primary care physician for repeat chest x-ray. Patient treated with IV fluid and oral potassium. Patient advised to quit smoking and follow-up with primary care physician or return to ER if develop fever or condition getting worse. Prescription for Bactrim and Tessalon was given. Diagnostic Imaging Diagonstic Imaging: Xray Plain Films/CT/US/NM/MRI: chest Comments 1 view chest x-ray interpreted by me and did not show acute finding. 1 view chest x-ray interpreted by radiologist and reviewed by me and showed: [facility], [place] NAME: DELBERT CALVILLO [facility] REC#: [id number] PT STATUS: REG ER : 1975 PHYSICIAN: EMMY BALTAZAR MD ADMIT DATE: 02/28/23/ER FS Draft Date of Exam:02/28/23 CHEST 1 VIEW AP/PA ONLY EXAMINATION: Chest 1 view HISTORY: Cough and shortness of breath COMPARISON: 10/23/2020 FINDINGS: A nodule projects over the right lower lung possibly representing a nipple shadow. There is no edema or pneumonia. No pleural effusion or pneumothorax. Heart size is normal. IMPRESSION: 1. Possible nodule versus nipple shadow projecting over the right lower zone. Follow-up two view with nipple markers versus chest CT could be performed. Dictated on workstation # [id number] Dict: 02/28/23 1631 Trans: 02/28/23 1632 [facility] [id number] Interpreted by: VIVIANA LOUIS MD Electronically signed by: Departure Impression Primary Impression: Upper respiratory infection Qualified Codes: J06.9 - Acute upper respiratory infection, unspecified Additional Impressions: History of HIV or AIDS Hypokalemia Tobacco abuse Hyponatremia Hypochloremia Disposition: HOME, SELF-CARE Condition: Stable Departure-Patient Inst. Decision time for Depature: 16:45 Referrals: NATALIE MATOS DO (PCP) Primary Care Physician Patient Instructions: Bacterial Upper Respiratory Infection, Adult (DC), Cough, Adult (DC), HIV/AIDS (DC), Hypokalemia, Quitting Smoking ED Add. Discharge Instructions: Quit smoking Drink plenty of liquids Continue home medication Follow-up with your primary care physician in 3 to 5 days Return to ER as needed All discharge instructions reviewed with patient and/or family. Voiced understanding. Scripts Benzonatate (TESSALON PERLES) 100 Mg Capsule 100 MG PO TID for cough, #20 CAP Prov: EMMY BALTAZAR MD 02/28/23 Sulfamethoxazole/Trimethoprim (Bactrim Ds Tablet) 1 Each Tablet 1 EACH PO BID, #14 TAB Prov: EMMY BALTAZAR MD 02/28/23 EMMY BALTAZAR MD Feb 28, 2023 16:23
--- NOTE | 2023-02-28 16:33 | Diagnostic Imaging Report ---
EXAMINATION: Chest 1 view HISTORY: Cough and shortness of breath COMPARISON: 10/23/2020 FINDINGS: A nodule projects over the right lower lung possibly representing a nipple shadow. There is no edema or pneumonia. No pleural effusion or pneumothorax. Heart size is normal. IMPRESSION: 1. Possible nodule versus nipple shadow projecting over the right lower zone. Follow-up two view with nipple markers versus chest CT could be performed. Dictated by: Dictated on workstation # [id number]
[2023-02-28 16:39] LABS: ALBUMIN 3.9 GM/DL (3.2-4.5); BILIRUBIN,TOTAL 0.5 MG/DL (0.1-1.0); CALCIUM 8.7 MG/DL (8.5-10.1); CREATININE SERUM 0.74 MG/DL (0.60-1.30); POTASSIUM 3.3 MMOL/L (3.6-5.0); TOTAL PROTEIN 7.7 GM/DL (6.4-8.2)
[2023-02-28] MEDS ORDERED: POTASSIUM CHLORIDE 20 MEQ TABLET PO ONE (16:45)
[2023-02-28] MEDS ORDERED: SULF1TAB38 PO ×2 (16:46→17:16)
[2023-02-28] MEDS ORDERED: BENZ100C18 PO ×2 (16:46→17:16)
[2023-02-28 17:09] VITALS: BP 137/86
== END 2023-02-28 17:09 | disposition home or self-care (01) ==
LOC: EDUNIT# 15:50 → ER FS 15:52
DX: J06.9 Acute upper respiratory infection, unspecified (principal); E87.6 Hypokalemia; E87.1 Hypo-osmolality and hyponatremia; E87.8 Other disorders of electrolyte and fluid balance, not elsewhere classified; F17.210 Nicotine dependence, cigarettes, uncomplicated; Z21 Asymptomatic human immunodeficiency virus [HIV] infection status; Z28.310 Unvaccinated for COVID-19; Z20.822 Contact with and (suspected) exposure to COVID-19
CPT/HCPCS: 36415; 71045; 80053; 83605; 85025; 87636